=== PATIENT | female | born 1965 | race Caucasian/White ===

== ENCOUNTER 2016-05-19 16:41 | Observation (INO) | payer OTHER ==
[~2016-05-19 16:41] MED LIST: ADVAIR IH; ADVAIR INH; ALBUTEROL2.5 MG/3 M NEB; AMARYL4 MG PO; CIPRO500 MG PO; CLARITIN10 MG PO; FLUTICASONE PRO16 GM; FLUTICASONE PRO16 GM NS; GLUCOPHAGE1000 MG PO; GLUCOPHAGE500 MG PO; IBUPROFEN400 MG PO; KLONOPIN1 MG PO; LASIX40 MG PO; LEVAQUIN750 MG PO; LIPITOR40 MG PO; METHADONE HCL10 MG PO; PAXIL40 MG PO; PERCOCET 10-321 EACH PO; PHENERGAN25 M1 PO; PREDNISONE10 MG PO; PROTONIX40 MG PO; SPIRIVA18 MCG IH; SPIRIVA18 MCG INH; SYNTHROID125 MCG PO; TOPAMAX25 MG PO; VALIUM10 MG PO; VENTOLIN HFA8 GM IH; VENTOLIN HFA8 GM INH; ZANTAC300 MG PO; ZOFRAN4 MG PO
[2016-05-21] MEDS ORDERED: PHENERGAN25 M1 PO (11:05)
[2016-05-21] MEDS ORDERED: SYNTHROID125 MCG PO (11:05)
[2016-05-21] MEDS ORDERED: PERCOCET 10-321 EACH PO (11:06)
[2016-05-21] MEDS ORDERED: KLONOPIN1 MG PO (11:06)
[2016-05-21] MEDS ORDERED: AMARYL4 MG PO (11:07)
[2016-05-21] MEDS ORDERED: LIPITOR40 MG PO (11:07)
[2016-05-21] MEDS ORDERED: GLUCOPHAGE500 MG PO (11:12)
[2016-05-21] MEDS ORDERED: CLARITIN10 MG PO (11:12)
[2016-05-21] MEDS ORDERED: SPIRIVA18 MCG IH (11:13)
[2016-05-21] MEDS ORDERED: FLUTICASONE PRO16 GM NS (11:14)
[2016-05-21] MEDS ORDERED: VENTOLIN HFA8 GM IH (11:15)
[2016-05-21] MEDS ORDERED: LASIX40 MG PO (11:18)
[2016-05-21] MEDS ORDERED: TOPAMAX25 MG PO (11:19)
[2016-05-21] MEDS ORDERED: ADVAIR 500-501 EACH IH (11:20)
[2016-05-21] MEDS ORDERED: ZANTAC300 MG PO (11:20)
[2016-05-21] MEDS ORDERED: ALBUTEROL2.5 MG/3 M NEB (11:21)
[2016-05-21] MEDS ORDERED: PROTONIX40 MG PO (11:21)
[2016-05-21] MEDS ORDERED: TUSSIONEX PENN115 ML PO (11:25)
[2016-05-21] MEDS ORDERED: LEVAQUIN750 MG PO (11:27)
[2016-05-21] MEDS ORDERED: PREDNISONE10 MG PO (11:28)
== END 2016-05-21 12:45 | disposition home or self-care (01) ==
LOC: ER 16:41 → MED 23:37 → ER 05-20 00:06 → MED 05-21 12:45
PROVIDERS: ADMIT Internal Medicine
DX: J44.1 Chronic obstructive pulmonary disease with (acute) exacerbation (principal); J40 Bronchitis, not specified as acute or chronic; E87.2 Acidosis; G47.33 Obstructive sleep apnea (adult) (pediatric); I10 Essential (primary) hypertension; E11.9 Type 2 diabetes mellitus without complications; K21.9 Gastro-esophageal reflux disease without esophagitis; F41.9 Anxiety disorder, unspecified; F32.9 Major depressive disorder, single episode, unspecified; G89.29 Other chronic pain; M54.5 Low back pain; Z87.891 Personal history of nicotine dependence; Z88.0 Allergy status to penicillin; Z88.5 Allergy status to narcotic agent; Z79.2 Long term (current) use of antibiotics; Z79.891 Long term (current) use of opiate analgesic; Z79.899 Other long term (current) drug therapy; Z99.89 Dependence on other enabling machines and devices; Z90.49 Acquired absence of other specified parts of digestive tract; Z98.51 Tubal ligation status; Z98.890 Other specified postprocedural states
CPT/HCPCS: 36415; 87502; 96361; 96365; 96372; 96376; G0378; J1650

== ENCOUNTER 2016-05-19 16:41 | Emergency (ER) | payer OTHER ==
[2016-05-21] MEDS ORDERED: SYNTHROID125 MCG PO (11:05)
[2016-05-21] MEDS ORDERED: PHENERGAN25 M1 PO (11:05)
[2016-05-21] MEDS ORDERED: KLONOPIN1 MG PO (11:06)
[2016-05-21] MEDS ORDERED: PERCOCET 10-321 EACH PO (11:06)
[2016-05-21] MEDS ORDERED: LIPITOR40 MG PO (11:07)
[2016-05-21] MEDS ORDERED: AMARYL4 MG PO (11:07)
[2016-05-21] MEDS ORDERED: GLUCOPHAGE500 MG PO (11:12)
[2016-05-21] MEDS ORDERED: CLARITIN10 MG PO (11:12)
[2016-05-21] MEDS ORDERED: SPIRIVA18 MCG IH (11:13)
[2016-05-21] MEDS ORDERED: FLUTICASONE PRO16 GM NS (11:14)
[2016-05-21] MEDS ORDERED: VENTOLIN HFA8 GM IH (11:15)
[2016-05-21] MEDS ORDERED: LASIX40 MG PO (11:18)
[2016-05-21] MEDS ORDERED: TOPAMAX25 MG PO (11:19)
[2016-05-21] MEDS ORDERED: ZANTAC300 MG PO (11:20)
[2016-05-21] MEDS ORDERED: ADVAIR 500-501 EACH IH (11:20)
[2016-05-21] MEDS ORDERED: PROTONIX40 MG PO (11:21)
[2016-05-21] MEDS ORDERED: ALBUTEROL2.5 MG/3 M NEB (11:21)
[2016-05-21] MEDS ORDERED: TUSSIONEX PENN115 ML PO (11:25)
[2016-05-21] MEDS ORDERED: LEVAQUIN750 MG PO (11:27)
[2016-05-21] MEDS ORDERED: PREDNISONE10 MG PO (11:28)
== END 2016-05-20 00:05 | disposition critical access hospital (66) ==
LOC: ER 16:41
DX: J44.1 Chronic obstructive pulmonary disease with (acute) exacerbation (principal); R74.0 Nonspecific elevation of levels of transaminase and lactic acid dehydrogenase [LDH]; E11.9 Type 2 diabetes mellitus without complications; K21.9 Gastro-esophageal reflux disease without esophagitis; F17.210 Nicotine dependence, cigarettes, uncomplicated; F32.9 Major depressive disorder, single episode, unspecified; Z79.899 Other long term (current) drug therapy; Z79.84 Long term (current) use of oral hypoglycemic drugs; Z88.5 Allergy status to narcotic agent; Z91.012 Allergy to eggs; Z91.018 Allergy to other foods; Z88.8 Allergy status to other drugs, medicaments and biological substances
CPT/HCPCS: 96361; 96365; 96375